=== PATIENT | female | born 1995 | race Caucasian/White ===

== ENCOUNTER → 2017-01-10 18:20 | Emergency (ER) | payer BC ==
[~2017-01-10 18:20] MED LIST: NS 0.9% 1000 ML* 1,000 ML IV ONE
[2017-01-10 21:03] LABS: Hematocrit 41 % (35-47); Hemoglobin 14.1 g/dl (12.0-16.0); Mean Corpuscular HGB Conc 35 g/dl (31-36); Mean Corpuscular Hemoglobin 31 pg (27-31); Mean Corpuscular Volume 91 fL (80-97); Mean Platelet Volume 7 um3 (7.4-10.4); Red Blood Count 4.49 10^6/ul (4.0-5.4); Red Cell Distribution Width 13 % (10.5-15); White Blood Count 5.5 10^3/ul (3.5-10.8)
[2017-01-10 21:18] LABS: ALT 22 U/L (7-52); AST 30 U/L (13-39); Albumin 4.1 g/dL (3.2-5.2); Alkaline Phosphatase 49 U/L (34-104); Anion Gap 10 mmol/L (2-11); BUN/Creatinine Ratio 10.8 (8-20); Blood Urea Nitrogen 10 mg/dL (6-24); C Reactive Protein 6.13 mg/L (< 5.00); CO2 Carbon Dioxide 23 mmol/L (22-32); Calcium 9.1 mg/dL (8.6-10.3); Chloride 101 mmol/L (101-111); EGFR African American 99.9 (>60); EGFR Non-African American 77.7 (>60); Glucose 77 mg/dL (70-100); Lipase 29 U/L (11.0-82.0); Potassium 3.6 mmol/L (3.5-5.0); Sodium 134 mmol/L (133-145); Total Protein 7.1 g/dL (6.4-8.9)
[2017-01-10 21:50] LABS: Urine Bilirubin Negative (Negative); Urine Glucose Negative (Negative); Urine Nitrite Negative (Negative)
--- NOTE | 2017-01-10 22:10 | ED ---
Richie Badillo Thomas, scribed for Katarzyna Valdovinos MD on 01/10/17 at 2026 . Abdominal Pain/Female - HPI Summary HPI Summary: The pt is a 21 y/o F referred from [facility] and presenting to the ED c/o intermittent umbilical abd that began yesterday morning. The pt rates the pain 7 /10 at its worst and 2/10 at its best. The pain is aggravated and alleviated by nothing. The patient has treated the pain with nothing INTRAOPERATIVE NEURO TECH. Pt additionally c/o nausea and decreased appetite. Pt denies vomiting, diarrhea, fevers, and chills. She denies any recent sick contacts. PMHx: previously healthy. PSHx: dental surgery. SHx: occasional alcohol use, occasional marijuana use. FHx: negative for DM, HTN. LNMP 01/02/17. She is a student at [employer]. - History of Current Complaint Chief Complaint: EDAbdPain Stated Complaint: ABD PAIN Time Seen by Provider: 01/10/17 19:53 Hx Obtained From: Patient Onset/Duration: Still Present Timing: Intermittent Episode Lasting Pain Intensity: 7 Pain Scale Used: 0-10 Numeric Location: Umbilical Aggravating Factor(s): Nothing Alleviating Factor(s): Nothing Associated Signs and Symptoms: Positive: Nausea, Other: - POS: decreased appetite; NEG: chills. Negative: Fever, Vomiting, Diarrhea Allergies/Adverse Reactions: Allergies Allergy/AdvReac Type Severity Reaction Status Date / Time Amoxicillin Allergy Severe Hives/Diff. Verified 01/10/17 19:57 Breathing/I tching PMH/Surg Hx/FS Hx/Imm Hx Previously Healthy: Yes Cardiovascular History: Denies: Hx Congestive Heart Failure Respiratory History: Denies: Hx Chronic Obstructive Pulmonary Disease (COPD) - Surgical History Surgery Procedure, Year, and Place: Dental surgery Infectious Disease History: No Infectious Disease History: Denies: Traveled Outside the [place] in Last 30 Days - Family History Known Family History: Negative: Diabetes - Social History Alcohol Use: Occasionally Substance Use Type: Reports: Marijuana Hx Tobacco Use: No Smoking Status (MU): Never Smoked Tobacco Review of Systems Negative: Fever, Chills Positive: Abdominal Pain - umbilical, Nausea, Other - POS: decreased appetite. Negative: Vomiting, Diarrhea All Other Systems Reviewed And Are Negative: Yes Physical Exam Triage Information Reviewed: Yes Vital Signs On Initial Exam: Initial Vitals Temp Pulse Resp BP Pulse Ox 97.6 F 74 14 112/82 100 01/10/17 18:30 01/10/17 18:30 01/10/17 18:30 01/10/17 18:30 01/10/17 18:30 Vital Signs Reviewed: Yes Appearance: Positive: Well-Appearing, No Pain Distress Skin: Positive: Warm, Skin Color Reflects Adequate Perfusion, Dry Eyes: Positive: EOMI, SYLVESTER ENT: Positive: Pharynx normal, TMs normal Neck: Positive: Supple, Nontender Respiratory/Lung Sounds: Positive: Clear to Auscultation, Breath Sounds Present. Negative: Rales, Rhonchi, Wheezes Cardiovascular: Positive: RRR. Negative: Murmur, Rub, Other - NEG: gallop Abdomen Description: Positive: Soft, Other: - She is tender to her periumbilicus. NEG: rebound. Negative: CVA Tenderness (R), CVA Tenderness (L), Distended, Guarding Bowel Sounds: Positive: Present Musculoskeletal: Positive: Strength/ROM Intact. Negative: Edema Left, Edema Right Neurological: Positive: Sensory/Motor Intact, Alert, Oriented to Person Place, Time, CN Intact II-III Psychiatric: Positive: Affect/Mood Appropriate - Johnie Coma Scale Coma Scale Total: 15 Diagnostics - Vital Signs Vital Signs Temp Pulse Resp BP Pulse Ox 01/10/17 19:55 98.3 F 75 16 112/79 100 01/10/17 18:30 97.6 F 74 14 112/82 100 - Laboratory Lab Results: Lab Results 01/10/17 01/10/17 01/10/17 Range/Units 20:45 20:45 21:35 WBC 5.5 (3.5-10.8) 10^3/ul RBC 4.49 (4.0-5.4) 10^6/ul Hgb 14.1 (12.0-16.0) g/dl Hct 41 (35-47) % MCV 91 (80-97) fL MCH 31 (27-31) pg MCHC 35 (31-36) g/dl RDW 13 (10.5-15) % Plt Count 259 (150-450) 10^3/ul MPV 7 L (7.4-10.4) um3 Neut % (Auto) 68.8 (38-83) % Lymph % (Auto) 18.1 L (25-47) % [place] % (Auto) 11.3 H (1-9) % Eos % (Auto) 1.6 (0-6) % Baso % (Auto) 0.2 (0-2) % Absolute Neuts (auto) 3.8 (1.5-7.7) 10^3/ul Absolute Lymphs (auto) 1.0 (1.0-4.8) 10^3/ul Absolute Monos (auto) 0.6 (0-0.8) 10^3/ul Absolute Eos (auto) 0.1 (0-0.6) 10^3/ul Absolute Basos (auto) 0 (0-0.2) 10^3/ul Absolute Nucleated RBC 0 10^3/ul Nucleated RBC % 0 Sodium 134 (133-145) mmol/L Potassium 3.6 (3.5-5.0) mmol/L Chloride 101 (101-111) mmol/L Carbon Dioxide 23 (22-32) mmol/L Anion Gap 10 (2-11) mmol/L BUN 10 (6-24) mg/dL Creatinine 0.93 (0.51-0.95) mg/dL Est GFR ( Amer) 99.9 (>60) Est GFR (Non-Af Amer) 77.7 (>60) BUN/Creatinine Ratio 10.8 (8-20) Glucose 77 (70-100) mg/dL Calcium 9.1 (8.6-10.3) mg/dL Total Bilirubin 0.60 (0.2-1.0) mg/dL AST 30 (13-39) U/L ALT 22 (7-52) U/L Alkaline Phosphatase 49 (34-104) U/L C-Reactive Protein 6.13 H (< 5.00) mg/L Total Protein 7.1 (6.4-8.9) g/dL Albumin 4.1 (3.2-5.2) g/dL Globulin 3.0 (2-4) g/dL Albumin/Globulin Ratio 1.4 (1-3) Lipase 29 (11.0-82.0) U/L Beta HCG, Quant < 0.60 mIU/mL Urine Color Yellow Urine Appearance Clear Urine pH 5.0 (5-9) Ur Specific [place] 1.011 (1.010-1.030) Urine Protein Negative (Negative) Urine Ketones 1+ H (Negative) Urine Blood Negative (Negative) Urine Nitrate Negative (Negative) Urine Bilirubin Negative (Negative) Urine Urobilinogen Negative (Negative) Ur Leukocyte Esterase Negative (Negative) Urine Glucose Negative (Negative) Result Diagrams: 01/10/17 20:45 01/10/17 20:45 Lab Statement: Any lab studies that have been ordered have been reviewed, and results considered in the medical decision making process. Abdominal Pain Fem Course/Dx - Course Course Of Treatment: 21 yo female with very mild patrick umbilic abd pain with normal labs pt didn't want pain or nausea meds to go but knows to followup if symptoms get worse - Diagnoses Provider Diagnoses: Abdominal pain Discharge - Discharge Plan Condition: Stable Disposition: HOME Referrals: NURY Sanon [Primary Care Provider] - The documentation as recorded by the Richie hernandez Thomas accurately reflects the service I personally performed and the decisions made by me, Katarzyna Valdovinos MD.
[2017-01-10 22:44] VITALS: BP 111/68
== END | disposition home or self-care (01) ==
LOC: ED 18:20
DX: R11.0 Nausea (principal); R10.9 Unspecified abdominal pain
CPT/HCPCS: 36415; 80053; 81003; 83690; 84702; 85025; 86140; 96360; 99283